=== PATIENT | female | born 1955 | race Caucasian/White ===

== ENCOUNTER 2020-02-02 03:14 | Inpatient (IN) | payer MEDICARE, OTHER ==
[~2020-02-02] VITALS: Ht 165.1 cm; Wt 108.6 kg
[2020-02-02] MEDS ORDERED: ONDANSETRON HCL 4 MG/2 ML VIAL IV ONE (03:45)
[2020-02-02] MEDS ORDERED: ASPirin 81 mg TAB PO ONE (03:45)
[2020-02-02] MEDS ORDERED: MORPHINE SULFATE 4 MG/ML SYR/VIAL IV ONE (03:45)
[2020-02-02] MEDS ORDERED: ASPirin 81 mg TAB ONE (05:00)
[2020-02-02 05:52] LABS: INR 0.94 (0.9-1.15); Partial Thromboplastin Time 25.2 sec (23.64-32.05)
[2020-02-02 05:53] LABS: Basophils # (auto) 0 10 ^3/uL (0-0.2); Basophils % (auto) 0.3 % (0.0-2.0); Eosinophils # (auto) 0 10 ^3/uL (0-0.8); Eosinophils % (auto) 0.7 % (0.0-7.0); Hemoglobin 13.8 g/dL (12.2-16.2); Lymphocytes # (auto) 0.8 10 ^3/uL (0.4-5.4); Lymphocytes % (auto) 13.1 % (10.0-50.0); Mean Corpuscular Hemoglobin 28.2 pg (28.0-32.0); Mean Corpuscular Hgb Conc. 32.9 g/dL (32.0-36.0); Mean Corpuscular Volume 85.6 fL (80.0-100.0); Monocytes # (auto) 0.4 10 ^3/uL (0-1.3); Neutrophils % (auto) 78.9 % (37.0-80.0); Platelet Count (auto) 209 10^3/uL (140-450); Red Blood Cells 4.91 10^6/uL (4.0-5.20); Red Cell Distribution Width 15.4 % (11.8-14.3); White Blood Cell 6.4 10^3/uL (4.4-10.8)
[2020-02-02 06:03] LABS: Albumin 3.3 g/dL (3.4-5.0); Calcium 8.6 mg/dL (8.5-10.1); Magnesium 2.3 mg/dL (1.6-2.6); Potassium 3.6 mmol/L (3.5-5.1)
[2020-02-02 06:09] LABS: BUN/Creatinine Ratio 13.6; Bilirubin, Total 0.2 mg/dL (0.2-1.0); Total Protein 7.2 g/dL (6.4-8.2)
[2020-02-02] MEDS ORDERED: ACETAMINOPHEN 325 MG TAB PO PRN (07:00)
[2020-02-02] MEDS ORDERED: MORPHINE SULF INJ 2 MG/ML SYRINGE 1ML IV PRN ×2 (07:00→18:15)
[2020-02-02] MEDS ORDERED: ONDANSETRON HCL 4 MG/2 ML VIAL IV PRN (07:00)
[2020-02-02] MEDS ORDERED: ZOLPIDEM TARTRATE 5 MG TAB PO PRN (07:00)
[2020-02-02] MEDS ORDERED: DEXTROSE (50%) 50ML SYRG IV PRN (07:00)
[2020-02-02] MEDS ORDERED: NITROGLYCERIN 0.4 MG SL TAB SL PRN ×2 (07:00)
[2020-02-02] MEDS ORDERED: MORPHINE SULFATE 4 MG/ML SYR/VIAL IV PRN (07:00)
[2020-02-02] MEDS ORDERED: LISINOPRIL 10 MG TAB PO SCH (10:00)
[2020-02-02] MEDS ORDERED: NITROGLYCERIN 0.4 MG SL TAB SL ONE (10:00)
[2020-02-02] MEDS ORDERED: ASPirin 81 mg TAB PO SCH (10:00)
[2020-02-02] MEDS ORDERED: CARVEDILOL 3.125 MG TAB PO SCH (10:00)
[2020-02-02] MEDS ORDERED: CLOPIDOGREL BISULFATE 75 MG TAB PO SCH (10:00)
[2020-02-02] MEDS: DOCUSATE SOD 100 MG CAP PO SCH (10:00)
[2020-02-02] MEDS ORDERED: ENOXAPARIN SOD 100 MG/1 ML SYRINGE SC SCH (10:00)
[2020-02-02] MEDS ORDERED: LISI-706 PO (10:21)
[2020-02-02] MEDS ORDERED: AMLO5TAB15 PO (10:23)
[2020-02-02] MEDS ORDERED: ATOR10TA PO (10:23)
[2020-02-02] MEDS ORDERED: NTG 0.1MG/HR TOPICAL PATCH TD ONE (10:45)
[2020-02-02] MEDS: InsuLIN REG 1unit/0.01ml Soln (100units/ml) SC SCH ×3 (12:00→23:49)
[2020-02-02] MEDS: ACCU-CHEK COMFORT CURVE STRIP VI SCH ×3 (12:11→23:48)
[2020-02-02] MEDS ORDERED: VERAPAMIL 2.5MG/ML INJ 2ML VIAL IV ONE (13:11)
[2020-02-02] MEDS ORDERED: ANGIOMAX 250 MG VIAL IV ONE (13:11)
[2020-02-02] MEDS ORDERED: fentaNYL CITRATE 100 MCG/2 ML VL ONE (13:11)
[2020-02-02] MEDS ORDERED: HEPARIN SODIUM (PORCINE) 5000 UNITS/ML 1ML VIAL ONE (13:11)
[2020-02-02] MEDS ORDERED: HEPARIN IN NS 1000Units/500mL 1,500 ML ONE (13:12)
[2020-02-02] MEDS ORDERED: NITROGLYCERIN 50MG/250ML 250 ML IV ONE (13:12)
[2020-02-02] MEDS ORDERED: SODIUM CHL 0.9% 50 ML ONE (13:12)
[2020-02-02] MEDS ORDERED: MIDAZOLAM HCL 1MG/1ML-2 ML VIAL ONE (13:12)
[2020-02-02] MEDS ORDERED: IODIXANOL 320MG/ML 100ML BTL IV ONE (13:12)
[2020-02-02] MEDS ORDERED: LIDOCAINE 2%HCL (LOCAL ANESTH.) INJ 20ML MDV ONE (13:12)
[2020-02-02] MEDS ORDERED: TICAGRELOR 90 MG TAB ONE (15:21)
--- NOTE | 2020-02-02 16:17 | NUR ---
Media Reporter; Patient taken to [facility] bed 263 on museum specialist, patient denies any chest pain at this time, Vital signs WNL. Vascband to right wrist in place and intact, no bleeding, no hematoma noted, care endorsed to Clint FLORES RN.
--- NOTE | 2020-02-02 17:19 | NUR ---
PT IN [facility] NO DISTRESS NOTED. COMPLETE PHYSICAL ASSESSMENT UNDER INTERVENTIONS. WILL CONTINUE TO MONITOR. CALL LIGHT WITHIN REACH AND BED LOCKED FOR SAFETY.
[2020-02-02 18:05] VITALS: BP 118/51
[2020-02-02 20:00] VITALS: BP 113/57
--- NOTE | 2020-02-02 20:00 | NUR ---
SHIFT OPENING NOTE RECEIVED PATIENT AWAKE, ALERT AND ORIENTED X4. NO SOB, DISTRESS OR PAIN NOTED. STATUS POST LHC. INSERTION SITE TO RIGHT WRIST IS OPEN TO AIR. NO SIGNS OF BLEEDING, BRUISING OR HEMATOMA. NORMAL PULSES TO RIGHT WRIST. PHYSICAL ASSESSMENT COMPLETED, SEE INTERVENTIONS. INSTRUCTED ON POC AND TO CALL FOR ASSIST NEEDED. BED IS IN THE LOWEST POSITION WITH SIDE RAILS UP X2, CALL LIGHT IS WITHIN REACH.
[2020-02-02] MEDS: CARVEDILOL 3.125 MG TAB PO SCH (21:14)
[2020-02-02] MEDS ORDERED: FEXOFENADINE HCL 60 MG TAB PO ONE (21:15)
[2020-02-02] MEDS ORDERED: ATORVASTATIN 20 MG TAB PO SCH ×2 (22:00)
[2020-02-03] VITALS: BP 98/51
--- NOTE | 2020-02-03 00:45 | NUR ---
ROUNDS PATIENT IS LAYING IN BED SLEEPING. NO SOB, DISTRESS OR PAIN NOTED. WILL CONTINUE TO CLOSELY MONITOR.
[2020-02-03 04:00] VITALS: BP 94/43
[2020-02-03 04:34] LABS: Basophils # (auto) 0 10 ^3/uL (0-0.2); Basophils % (auto) 0.4 % (0.0-2.0); Eosinophils # (auto) 0.1 10 ^3/uL (0-0.8); Eosinophils % (auto) 2.2 % (0.0-7.0); Hematocrit 41.1 % (36.0-46.0); Hemoglobin 13.5 g/dL (12.2-16.2); Lymphocytes # (auto) 1.5 10 ^3/uL (0.4-5.4); Lymphocytes % (auto) 24.5 % (10.0-50.0); Mean Corpuscular Hgb Conc. 32.7 g/dL (32.0-36.0); Mean Corpuscular Volume 85.5 fL (80.0-100.0); Monocytes # (auto) 0.6 10 ^3/uL (0-1.3); Monocytes % (auto) 9.6 % (0.0-12.0); Neutrophils # (auto) 3.9 10 ^3/uL (1.6-8.6); Neutrophils % (auto) 63.3 % (37.0-80.0); Nucleated Red Blood Cells % 0.1 %; Platelet Count (auto) 205 10^3/uL (140-450); Red Blood Cells 4.81 10^6/uL (4.0-5.20); Red Cell Distribution Width 15.1 % (11.8-14.3); White Blood Cell 6.1 10^3/uL (4.4-10.8)
[2020-02-03 04:57] LABS: Potassium 3.6 mmol/L (3.5-5.1)
[2020-02-03] MEDS ORDERED: TICAGRELOR 90 MG TAB PO SCH (05:00)
[2020-02-03 05:07] LABS: Calcium 8.4 mg/dL (8.5-10.1)
--- NOTE | 2020-02-03 05:35 | NUR ---
ASSISTED UP TO BSC URINE OUTPUT 450 ML OF CLEAR YELLOW. SAFELY BACK TO BED. TOLERATED IT WELL.
[2020-02-03] MEDS: InsuLIN REG 1unit/0.01ml Soln (100units/ml) SC SCH ×2 (05:36→12:45)
[2020-02-03] MEDS: ACCU-CHEK COMFORT CURVE STRIP VI SCH ×2 (05:36→13:08)
--- NOTE | 2020-02-03 07:00 | NUR ---
DR. PINO AT BEDSIDE
--- NOTE | 2020-02-03 07:10 | NUR ---
PER DR. PINO PATIENT CAN GO HOME TODAY
--- NOTE | 2020-02-03 07:12 | NUR ---
END OF SHIFT REPORT GIVEN AND CARE ENDORSED TO EFREN RN'S.
--- NOTE | 2020-02-03 07:24 | NUR ---
Opening Shift Note Assumed care of patient, awake and alert x 4. No S/S of distress/SOB or pain. Patient is on continuous EKG and pulse oximetry monitoring. Bed is in lowest position and locked. Call light within reach. Board updated. Instructed on POC and to call for assist PRN, will continue to monitor for changes Q1hr and PRN.
[2020-02-03 08:00] VITALS: BP 112/63
--- NOTE | 2020-02-03 09:35 | NUR ---
Held Colace per patient request. She is moving bowels regularly and is having no motility issues.
[2020-02-03] MEDS ORDERED: NTG 0.1MG/HR TOPICAL PATCH TD SCH (10:00)
[2020-02-03] MEDS ORDERED: ASPirin 81 mg TAB PO SCH (10:00)
[2020-02-03] MEDS: DOCUSATE SOD 100 MG CAP PO SCH (10:00)
[2020-02-03] MEDS: CARVEDILOL 3.125 MG TAB PO SCH (10:24)
[2020-02-03] MEDS ORDERED: FEXOFENADINE HCL 60 MG TAB PO ONE (11:30)
[2020-02-03] MEDS ORDERED: ASPI81CH43 PO (11:31)
[2020-02-03] MEDS ORDERED: TICA90TA PO (11:31)
[2020-02-03] MEDS ORDERED: ATOR40TA52 PO (11:31)
[2020-02-03] MEDS ORDERED: CAR3125T PO (11:34)
[2020-02-03 12:00] VITALS: BP 101/62
--- NOTE | 2020-02-03 12:35 | NUR ---
Partida in to see patient. agreed to discharge and will write order.
[2020-02-03 12:41] VITALS: BP 101/62
--- NOTE | 2020-02-03 14:01 | NUR ---
Patient taken down via wheelchair with GRADY Taylor to get prescription from [facility] and go home. Discharge instructions given as ordered. Encourage to follow up with PMD as instructed. All questions and concerns addressed. Patient verbalized understanding. IV removed with catheter intact, pressure dressing applied. Patient taken to vehicle via wheelchair with all personal belongings, accompanied by staff No distress noted at time of departure.
== END 2020-02-03 14:05 | disposition home or self-care (01) | DRG 246 ==
LOC: ER 03:14 → TELE 03:15 → DOU IN ICU 17:58
PROVIDERS: ADMIT Hospitalist; ATTEND Hospitalist
PROC: 027034Z Dilation of Coronary Artery, One Artery with Drug-eluting Intraluminal Device, Percutaneous Approach (ICD-10-PCS; principal; 2020-02-02)
PROC: 4A023N7 Measurement of Cardiac Sampling and Pressure, Left Heart, Percutaneous Approach (ICD-10-PCS; 2020-02-02)
PROC: B211YZZ Fluoroscopy of Multiple Coronary Arteries using Other Contrast (ICD-10-PCS; 2020-02-02)
DX: I21.4 Non-ST elevation (NSTEMI) myocardial infarction (principal); I50.43 Acute on chronic combined systolic (congestive) and diastolic (congestive) heart failure; E44.1 Mild protein-calorie malnutrition; I25.10 Atherosclerotic heart disease of native coronary artery without angina pectoris; E66.01 Morbid (severe) obesity due to excess calories; E78.5 Hyperlipidemia, unspecified; L50.9 Urticaria, unspecified; E11.65 Type 2 diabetes mellitus with hyperglycemia; Z68.39 Body mass index [BMI] 39.0-39.9, adult; Z79.899 Other long term (current) drug therapy; I11.0 Hypertensive heart disease with heart failure
CPT/HCPCS: 36415; 71045; 80048; 80053; 80061; 82962; 83036; 83735; 83880; 84484; 85025; 85610; 85730; 92928; 93005; 93306; 93458; 96372; 96374; 96375; 99152; 99153; C1874; C1887; G0378; J2250; J2405; Q9967

== ENCOUNTER 2025-02-05 00:39 | Inpatient (IN) | payer MEDICARE, OTHER ==
[2025-02-05] VITALS (11 sets, daily range): BP systolic 120–159; BP diastolic 61–75; PULSE 69–92; RESP 16–20; TEMP 98.1–99.2; O2SAT 93–98
[~2025-02-05] VITALS: Ht 167.6 cm; Wt 105.2 kg
[~2025-02-05 00:39] MED LIST: ASPI81CH43 PO; ATOR10TA PO; ATOR40TA52 PO; CARV-214 PO; LISI-706 PO; TICA90TA PO
--- NOTE | 2025-02-05 01:09 | ECG ---
[facility] Test Date: 2025-02-05 Test Time: 00:46:43 Pat Name: NINI LOPEZ Department: C Room: 0281T Gender: F Alignment Mechanic: BEATRIZ : 1955 Requested By: LAURA MCARTHUR Order Number: [id number] Reading MD: Gasper Pedersen Measurements Intervals [place] Rate: 75 P: 79 HI: 181 QRS: 54 QRSD: 107 T: 45 QT: 428 QTc: 479 Interpretive Statements Sinus rhythm Abnormal R-wave progression, early transition Electronically Signed On 02-06-2025 19:04:30 PDT by Gasper Pedersen Please click the below link to view image of tracing.
[2025-02-05] MEDS: MAALOX PLUS or MAALOX 30 ML PO ONE (01:15)
[2025-02-05 01:16] LABS: Hematocrit 42.8 % (36.0-46.0); Hemoglobin 14.4 g/dL (12.2-16.2); Mean Corpuscular Hemoglobin 28.3 pg (28.0-32.0); Mean Corpuscular Volume 84.1 fL (80.0-100.0); Nucleated Red Blood Cells % 0.0 %
--- NOTE | 2025-02-05 01:16 | ED.PDOC ---
History of Present Illness HPI Comments 69 y/o F presents with c/c of mid-abdominal pain, that radiates to her chest and back, with associated nausea, vomiting, fatigue, and dry mouth. Patient reports on sudden and unprovoked onset of symptoms 3x hours prior to arrival. No prior history of symptoms in the past. Pain is burning in quality and an 8/10 in severity. No relief with Gas-X, Terrie Ellsworth, or Pepcid medication use. She also reports 1x isolated episode of diarrhea in addition to eating urdu food and tacos and drinking 3x glasses of wine, yesterday. Denies any shortness of breath, lightheadedness, dizziness, leg swelling, or further associated symptoms. Significant history of three-vessel disease - CAD s/p PCI at [facility], chronic urticaria, DM, HLD, HTN, NSTEMI x3 years ago, and obesity. Chief Complaint: Chest Pain Time Seen by MD: 00:45 Reviewed Notes: Nurses Notes, Medications, Allergies Allergies: Coded Allergies: No Known Drug Allergy (Verified Allergy, Unknown, 02/02/20) Home Meds Active Scripts Aspirin (Aspirin Ec) 81 Mg Tab, 81 MG PO DAILY, #120 TAB Prov:CIRO ABARCA MD 02/05/25 Carvedilol (COREG) 3.125 Mg Tab, 3.125 MG PO BID for 30 Days, #60 TAB Prov:CIRO ABARCA MD 02/05/25 Atorvastatin Calcium (ATORVASTATIN CALCIUM) 40 Mg Tab, 1 TAB PO DAILY, #30 TAB 1 Refill Prov:CIRO ABARCA MD 02/05/25 Ticagrelor Base (BRILINTA) 90 Mg Tab, 90 MG PO BID for 30 Days, #60 TAB 1 Refill Prov:CIRO ABARCA MD 02/05/25 Aspirin (Asa) 81 Mg Ch, 81 MG PO DAILY for 100 Days, #100 TAB Prov:COREEN VALENZUELA MD 02/03/20 Reported Medications Atorvastatin Calcium (Lipitor) 10 Mg Tab, 1 TAB PO QPM, #90 TAB 3 Refills 02/02/20 Lisinopril & Hydrochlorothiazi (Zestoretic 20-12.5 mg) 1 Tab Tab, 2 TAB PO DAILY, TAB 02/02/20 Information Source: Patient Mode of Arrival: Wheelchair Severity: Moderate Timing: Hours Duration: Since onset Prehospital treatment: None Review of Systems: REVIEW OF SYSTEMS: Fatigue, no fever, no chills. HEENT: Dry mouth, no sore throat, no earache, no congestion, no neck pain. Cardiac: No chest pain. No palpitations. Lungs: No shortness of breath, no cough. GI: Abdominal pain, nausea, vomiting, no diarrhea : No dysuria, frequency, or urgency. No hematuria. Musculoskeletal: No joint pain , no joint swelling, no extremity edema. Skin: No rash, no itching. Neuro: No headache, no dizziness, no weakness Vital Signs Vital Signs Date Time Temp Pulse Resp B/P (MAP) Pulse Ox O2 Delivery O2 Flow Rate FiO2 02/05/25 03:50 67 16 158/83 (108) 94 02/05/25 02:36 98.7 98.7 02/05/25 02:36 Room Air Physical Exam General: Awake, alert and oriented. No acute distress. Skin: Skin in warm, dry and intact. Appropriate color for ethnicity. HEENT: The head is normocephalic and atraumatic. Conjunctivae are clear without exudates or hemorrhage. Sclera is non-icteric. EOM are intact. No signs of nystagmus. Eyelids are normal in appearance without swelling or lesions. Oral mucosa is pink and moist Neck: The neck is supple with normal range of motion. No JVD. Cardiac: Heart rate and rhythm are normal. No murmurs, gallops, or rubs are auscultated. Respiratory: No signs of respiratory distress. Lung sounds are clear in all lobes bilaterally without rales, rhonchi, or wheezes. Abdominal: Epigastric and RUQ abdominal tenderness. Remaining abdomen is soft, non-tender without distention, guarding or rigidity. Bowel sounds are present and normoactive in all four quadrants. Extremities: Upper and lower extremities are atraumatic in appearance without deformity or edema. Neurological: The patient is awake, alert and oriented to person, place, and time with normal speech. Speech is clear. There is no facial asymmetry. Psychiatric: Appropriate mood and affect. Good judgement and insight. Past Medical History PAST MEDICAL HISTORY: CAD (Three-vessel disease), DM, High Lipids, HTN, [place] (NSTEMI 3 years ago) Past Medical History (Other): Obesity Chronic Uticaria Surgical History (Other): S/p PCI at [facility] PLACEMENT MANAGER History: No Pertinent PLACEMENT MANAGER History Family History Family History: Reviewed,noncontributory to illness, No family hx of Cancer Social History Smoker: Non-Smoker Alcohol: Occasionally Drugs: Denies Drug Use Lives In: Home Was a procedure done? Was a procedure done?: No EKG EKG : Pulse Rate (adult): 75 [place]: Normal Cardiac Rhythm: NSR Block: None Hypertrophy: None ST: Normal Comments No STEMI Differential Dx Considerations may include: Differential diagnoses considered include acute ischemic coronary syndrome, aortic dissection, cardiac tamponade, mediastinitis, pulmonary embolus, pneumothorax, tension pneumothorax, esophageal rupture, coronary artery vasospasm, myocarditis, pericarditis, pneumonia, pulmonary edema, esophageal tear, pancreatitis, aortic stenosis, dilated cardiomyopathy, hypertrophic cardiomyopathy, mitral valve prolapse, malignancy, pleuritis, pneumomediastinum, primary pulmonary hypertension, cholecystitis, esophageal spasm, esophagus, gastritis, GERD, peptic ulcer disease, costochondritis, fibromyalgia, rib fracture, herpes zoster, radicular syndromes, thoracic outlet syndrome, somati zation. X-Ray, Labs, Meds, VS Vital Signs Date Time Temp Pulse Resp B/P (MAP) Pulse Ox O2 Delivery O2 Flow Rate FiO2 02/05/25 03:50 67 16 158/83 (108) 94 02/05/25 03:47 67 16 158/83 02/05/25 03:42 65 02/05/25 02:36 98.7 75 16 163/66 (98) 95 98.7 02/05/25 02:36 75 16 163/66 02/05/25 02:36 75 16 95 Room Air 02/05/25 01:45 69 02/05/25 01:16 75 02/05/25 00:47 97.7 88 18 179/86 (117) 97 97.7 02/05/25 00:46 75 Lab Test 02/05/25 05:33 02/05/25 04:06 02/05/25 02:02 02/05/25 01:03 Range/Units Prothrombin Time 10.3 9.3-11.8 sec Prothrombin Time INR 0.97 0.9-1.15 Troponin I High Sensitivity 60 *H 36 *H 26 </=34 ng/L White Blood Count 8.0 4.4-10.8 10^3/uL Red Blood Count 5.09 4.0-5.20 10^6/uL Hemoglobin 14.4 12.2-16.2 g/dL Hematocrit 42.8 36.0-46.0 % Mean Corpuscular Volume 84.1 80.0-100.0 fL Mean Corpuscular Hemoglobin 28.3 28.0-32.0 pg Mean Corpuscular Hemoglobin Concent 33.7 32.0-36.0 g/dL Red Cell Distribution Width 14.6 H 11.8-14.3 % Platelet Count 205 140-450 10^3/uL Mean Platelet Volume 8.4 6.9-10.8 fL Neutrophils (%) (Auto) 78.2 37.0-80.0 % Lymphocytes (%) (Auto) 13.8 10.0-50.0 % Monocytes (%) (Auto) 6.6 0.0-12.0 % Eosinophils (%) (Auto) 1.1 0.0-7.0 % Basophils (%) (Auto) 0.3 0.0-2.0 % Neutrophils # (Auto) 6.3 1.6-8.6 10 ^3/uL Lymphocytes # (Auto) 1.1 0.4-5.4 10 ^3/uL Monocytes # (Auto) 0.5 0-1.3 10 ^3/uL Eosinophils # (Auto) 0.1 0-0.8 10 ^3/uL Basophils # (Auto) 0 0-0.2 10 ^3/uL Nucleated Red Blood Cells 0.0 % Sodium Level 141 136-145 mmol/L Potassium Level 3.5 3.5-5.1 mmol/L Chloride Level 102 98-107 mmol/L Carbon Dioxide Level 30 20-31 mmol/L Anion Gap 9 5-15 Blood Urea Nitrogen 17 9-23 mg/dL Creatinine 1.03 H 0.550-1.02 mg/dL Glomerular Filtration Rate Calc 58 >90 mL/min BUN/Creatinine Ratio 16.5 10.0-20.0 Serum Glucose 132 H 74-106 mg/dL Calcium Level 9.0 8.7-10.4 mg/dL B-Type Natriuretic Peptide 29.68 0-100 pg/mL Current Medications Medications (Trade) Dose Ordered Sig/Ann Marie Route Start Time Stop Time Status Last Admin Al Hydrox/Mg Hydrox/Simethicone (Maalox Plus) 30 ml ONCE ONCE PO 02/05/25 01:15 02/05/25 01:16 DC 02/05/25 01:15 Lidocaine HCl (Xylocaine 2% Viscous) 10 ml ONCE ONCE PO 02/05/25 01:15 02/05/25 01:16 DC 02/05/25 02:59 Morphine Sulfate 2 mg ONCE ONCE IV 02/05/25 01:15 02/05/25 01:16 DC 02/05/25 02:36 Ondansetron HCl (Zofran) 4 mg ONCE ONCE IV 02/05/25 01:15 02/05/25 01:16 DC 02/05/25 02:36 [place] [id number] Ph: [phone] DIAGNOSTIC IMAGING Diagnostic Imaging Report : [id number] Signed PATIENT: NINI LOPEZ ACCT: [id number] UNIT: [id number] : 1955 LOC: ER ROOM / BED: / AGE / SEX: 69 / F ADM STATUS: REG ER SERVICE 0 ORDERING PHYSICIAN: LAURA MCARTHUR MD PROCEDURE(s): CXR1 - CHEST XRAY 1 VIEW REASON: cp ORDER NUMBER(s): [id number], ACCESSION NUMBER(s): [id number] CHEST RADIOGRAPH Indication: cp Technique: Single frontal view of the chest was obtained COMPARISON: None FINDINGS: Lines and Tubes: None Lungs: Clear Pleura: No effusion. No pneumothorax. Cardiomediastinal contours: Unremarkable Bones: Unremarkable IMPRESSION: 1. No acute disease. ATED BY: DIAZ HOLLIDAY MD DICTATED DATE/TIME: 02/05/25123 SIGNED BY: DIAZ HOLLIDAY MD SIGNED DATE/TIME: 02/05/25123 CC: Time of 1ST Reevaluation: 01:15 Reevaluation 1ST: Unchanged Patient Education/Counseling: Treatment, Other (Need for admission) Family Education/Counseling: No Family Present SEPSIS Sepsis Screen Date sepsis recognized/suspect: Feb 05, 2025 Time Sepsis recognized/suspect: 0040 Recent Procedure: No On Antibiotic Therapy: No Respiratory Rate >20: No Heart Rate >90: No Temp<36 C (96.8 F) or >38.3 C: No SBP <90 or MAP <65 mmHG: No New Acute Mental Status Change: No Is the patient on CPAP, BIPAP,: No Physician Orders Chest Xray 1 View (02/05/25 01:01) Vital Signs Q1HR (02/05/25 01:01) Vital Signs Date Time Temp Pulse Resp B/P (MAP) Pulse Ox O2 Delivery O2 Flow Rate FiO2 02/05/25 03:50 67 16 158/83 (108) 94 02/05/25 03:47 67 16 158/83 02/05/25 03:42 65 02/05/25 02:36 98.7 75 16 163/66 (98) 95 98.7 02/05/25 02:36 75 16 163/66 02/05/25 02:36 75 16 95 Room Air 02/05/25 01:45 69 02/05/25 01:16 75 02/05/25 00:47 97.7 88 18 179/86 (117) 97 97.7 02/05/25 00:46 75 Laboratory Tests Test 02/05/25 01:03 White Blood Count 8.0 10^3/uL (4.4-10.8) Departure 1 Departure Time of Disposition: 04:31 Impression: Primary Impression: Chest pain Additional Impression: Elevated troponin Disposition: ADMITTED INPATIENT Condition: Stable e-Prescriptions Aspirin (Aspirin Ec) 81 Mg Tab 81 MG PO DAILY, #120 TAB Prov: CIRO ABARCA MD 02/05/25 Carvedilol (COREG) 3.125 Mg Tab 3.125 MG PO BID for 30 Days, #60 TAB Prov: CIRO ABARCA MD 02/05/25 Atorvastatin Calcium (ATORVASTATIN CALCIUM) 40 Mg Tab 1 TAB PO DAILY, #30 TAB 1 Refill Prov: CIRO ABARCA MD 02/05/25 Ticagrelor Base (BRILINTA) 90 Mg Tab 90 MG PO BID for 30 Days, #60 TAB 1 Refill Prov: CIRO ABARCA MD 02/05/25 Comments 72-year-old female presents with epigastric abdominal burning sensation Concern for chest pain syndrome Troponin increasing during the ED observation EKG shows no ischemic changes Patient admitted to hospitalist service for further treatment, evaluation and monitoring. Extensive evaluation was performed in attempt to identify or rule out: (See differential diagnosis section) The following tests were ordered, and results were reviewed by me and discussed with patient: (See diagnostic results section) The following test were independently interpreted by me: EKG I reviewed and agreed with the following test results read by other providers: Chest x-ray I reviewed the following notes from the pt's past medical encounters: February 02, 2020 encounter for NSTEMI Decision regarding hospitalization or escalation of hospital level of care: Risk and benefits of admission for further treatment of patient's condition was considered. Due to patient's current clinical condition, high risk of decline and poor outcome if discharged and need for further inpatient management and monitoring, patient will be admitted to the hospital. Critical Care Note Critical Care Time?: No Stability Stability form required: No Heart Score Heart Score: Heart Score Response (Comments) Value History Moderate Suspicious 1 EKG Normal 0 Age >65 2 Risk Factors >3 or Hx ASHD 2 Troponin 1-2 x's Normal limit 1 Total 6 I personally scribed for LAURA MCARTHUR MD [email or web address]) on 02/05/25 at 01:16. Electronically submitted by Gideon Hahn [email or web address]). I personally scribed for LAURA MCARTHUR MD ([email or web address]) on 02/05/25 at 03:06. Electronically submitted by Gideon Hahn [email or web address]). LAURA MCARTHUR MD Feb 05, 2025 01:16
[2025-02-05 01:24] LABS: Chloride 102 mmol/L (98-107); Sodium 141 mmol/L (136-145)
[2025-02-05 01:25] LABS: Anion Gap 9 (5-15); Carbon Dioxide 30 mmol/L (20-31)
[2025-02-05 01:26] LABS: Calcium 9.0 mg/dL (8.7-10.4)
--- NOTE | 2025-02-05 01:27 | DVH ---
CHEST RADIOGRAPH Indication: cp Technique: Single frontal view of the chest was obtained COMPARISON: None FINDINGS: Lines and Tubes: None Lungs: Clear Pleura: No effusion. No pneumothorax. Cardiomediastinal contours: Unremarkable Bones: Unremarkable IMPRESSION: 1. No acute disease.
[2025-02-05 01:30] LABS: BUN/Creatinine Ratio 16.5 (10.0-20.0); Blood Urea Nitrogen 17 mg/dL (9-23)
[2025-02-05 01:31] LABS: Glucose 132 mg/dL (74-106); Potassium 3.5 mmol/L (3.5-5.1)
[2025-02-05] MEDS: MORPHINE SULFATE INJ 2 MG/ml SYRG IV ONE (02:36)
[2025-02-05] MEDS: ONDANSETRON HCL 4 MG/2 ML VIAL IV ONE (02:36)
[2025-02-05] MEDS: LIDOCAINE VISCOUS 2% 15ML UD PO ONE (02:59)
[2025-02-05] MEDS ORDERED: MORPHINE SULFATE INJ 2 MG/ml SYRG IV PRN (05:45)
[2025-02-05] MEDS ORDERED: NITROGLYCERIN 0.4 MG SL TAB SL PRN (05:45)
[2025-02-05] MEDS ORDERED: HYDROcodone-ACET 5/325MG TAB PO PRN ×2 (05:45→06:00)
--- NOTE | 2025-02-05 05:48 | ECG ---
[facility] Test Date: 2025-02-05 Test Time: 01:45:20 Pat Name: NINI LOPEZ Department: ED Room: 0281T Gender: F Lithographic Plate Maker: YULIA : 1955 Requested By: LAURA MCARTHUR Order Number: [id number] Reading MD: Gasper Pedersen Measurements Intervals [place] Rate: 69 P: 53 VT: 157 QRS: 19 QRSD: 113 T: 28 QT: 425 QTc: 456 Interpretive Statements Sinus rhythm Anteroseptal infarct, age indeterminate Electronically Signed On 02-06-2025 19:04:35 PDT by Gasper Pedersen Please click the below link to view image of tracing.
--- NOTE | 2025-02-05 05:49 | ECG ---
[facility] Test Date: 2025-02-05 Test Time: 03:42:12 Pat Name: NINI LOPEZ Department: ED Room: [facility] Gender: F Armed Security Guard: YULIA : 1955 Requested By: LAURA MCARTHUR Order Number: [id number] Reading MD: Gasper Pedersen Measurements Intervals [place] Rate: 65 P: 54 NE: 170 QRS: 15 QRSD: 107 T: 27 QT: 441 QTc: 459 Interpretive Statements Sinus rhythm Electronically Signed On 02-06-2025 19:04:46 PDT by Gasper Pedersen Please click the below link to view image of tracing.
--- NOTE | 2025-02-05 06:03 | DVHHP2 ---
Admitting Diagnosis: Chest pain r/o ACS, Elevated Troponin level History of Present Illness History Source: Patient Exam Limitations: No limitations HPI Mrs. Carmina Temple is a 69 yo female with known history of CAD, NSTEMI, stent placement x1 by Dr. Andrea cerrato 3 years ago, HTN, HLD, DM, Obesity who presents with a chief complaint of mid abdominal pain burning sensation radiating to mid epigastric, chest and back onset last night which prompted her to come to the hospital. Patient reports associated nausea , vomiting. Denies dyspnea, heada ches, blurry vision, fevers , chills, diarrhea, vomiting, melena, hematochezia, hematemesis. Patient with troponin levels of 26, 36 , 60. Patient admitted for further evaluation and treatment. Home Meds Active Scripts Carvedilol (COREG) 3.125 Mg Tab, 3.125 MG PO Q12HR for 30 Days, #60 TAB Prov:COREEN VALENZUELA MD 02/03/20 Atorvastatin Calcium (ATORVASTATIN CALCIUM) 40 Mg Tab, 1 TAB PO DAILY, #30 TAB 0 Refills Prov:COREEN VALENZUELA MD 02/03/20 Ticagrelor Base (BRILINTA) 90 Mg Tab, 90 MG PO BID for 30 Days, #60 TAB Prov:COREEN VALENZUELA MD 02/03/20 Aspirin (Asa) 81 Mg Ch, 81 MG PO DAILY for 100 Days, #100 TAB Prov:COREEN VALENZUELA MD 02/03/20 Reported Medications Atorvastatin Calcium (Lipitor) 10 Mg Tab, 1 TAB PO QPM, #90 TAB 3 Refills 02/02/20 Lisinopril & Hydrochlorothiazi (Zestoretic 20-12.5 mg) 1 Tab Tab, 2 TAB PO DAILY, TAB 02/02/20 Past Medical History Cardiac: CAD, HTN, CO (stent placement), Hyperlipidemia Pulmonary: No pertinent Hx Central Nervous System: No pertinent Hx GI: No pertinent Hx Hemotology/Oncology: No pertinent Hx Hepatobiliary: No pertinent Hx Psychiatric: No pertinent Hx Musculoskeletal: No pertinent Hx Rheumotologic: No pertinent Hx Infectious Disease: No peritnent Hx ENT: No pertinent Hx Renal/: No pertinent Hx Endocrine: NIDDM Dermatology: No pertinent Hx Patient Family History: FH: cancer Hypertension G8 MOTHER Smoker: No Hx (Negative) Alocohol: None Drugs: None Domestic Violence: Neg Review of Systems Constitutional: No symptom reported Ears, Nose, & Throat: No symptom reported Eyes: No symptom reported Pulmonary/Respiratory: No symptom reported Cardiovascular: Chest Pain Gastrointestinal: Nausea, Vomiting, Abdominal Pain Genitourinary: No symptom reported Musculoskeletal: Back pain Skin: No symptom reported Psychiatric: No symptom reported Endocrine: No symptom reported Hemotologic/Lymphatic: No symptom reported H&P Exam Vital Signs Vital Signs Date Time Temp Pulse Resp B/P (MAP) Pulse Ox O2 Delivery O2 Flow Rate FiO2 02/05/25 03:50 67 16 158/83 (108) 94 02/05/25 02:36 98.7 98.7 02/05/25 02:36 Room Air General Appeara: Well developed, Well nourished, Normal Appearance Head Exam: Normal inspection Neck Exam: Normal inspection, Non-tender, Normal alignment Eye Exam: bilateral eye Normal inspection, bilateral eye PERRL, bilateral eye EOMI Ear Exam: bilateral ear Auricle normal Nasal Exam: Normal inspection Mouth: Normal Inspection Pulmonary/Respiratory: Normal inspection, Normal breath sounds, Chest non- tender, Lungs clear Cardiovascular/Chest: Normal inspection, Regular rate, Normal Rhythm Peripheral Pulses: 2+ dorsalis pedis (R), 2+ dorsalis pedis (L), 2+ Radial (R), 2+ Radial (L) Abdominal Exam: Normal bowel sounds, Soft, No tenderness Abdominal Pain Onset Location: Epigastric Back Exam: Normal inspection RHEUMATOLOGIST Exam: Normal hearing, Normal speech, PERRL Motor/Sensory: Normal sensory function, Normal motor function Neuro/Mental St: Alert, Oriented Eye contact/ Speech: Cooperative, Good eye contact, Normal speech Thoughts/Psych: Normal thought pattern Skin Exam: Normal inspection, Normal color, Warm/dry Labs/Xrays Labs Test 02/05/25 04:06 02/05/25 01:03 Range/Units Troponin I High Sensitivity 60 *H </=34 ng/L White Blood Count 8.0 4.4-10.8 10^3/uL Red Blood Count 5.09 4.0-5.20 10^6/uL Hemoglobin 14.4 12.2-16.2 g/dL Hematocrit 42.8 36.0-46.0 % Mean Corpuscular Volume 84.1 80.0-100.0 fL Mean Corpuscular Hemoglobin 28.3 28.0-32.0 pg Mean Corpuscular Hemoglobin Concent 33.7 32.0-36.0 g/dL Red Cell Distribution Width 14.6 H 11.8-14.3 % Platelet Count 205 140-450 10^3/uL Mean Platelet Volume 8.4 6.9-10.8 fL Neutrophils (%) (Auto) 78.2 37.0-80.0 % Lymphocytes (%) (Auto) 13.8 10.0-50.0 % Monocytes (%) (Auto) 6.6 0.0-12.0 % Eosinophils (%) (Auto) 1.1 0.0-7.0 % Basophils (%) (Auto) 0.3 0.0-2.0 % Neutrophils # (Auto) 6.3 1.6-8.6 10 ^3/uL Lymphocytes # (Auto) 1.1 0.4-5.4 10 ^3/uL Monocytes # (Auto) 0.5 0-1.3 10 ^3/uL Eosinophils # (Auto) 0.1 0-0.8 10 ^3/uL Basophils # (Auto) 0 0-0.2 10 ^3/uL Nucleated Red Blood Cells 0.0 % Sodium Level 141 136-145 mmol/L Potassium Level 3.5 3.5-5.1 mmol/L Chloride Level 102 98-107 mmol/L Carbon Dioxide Level 30 20-31 mmol/L Anion Gap 9 5-15 Blood Urea Nitrogen 17 9-23 mg/dL Creatinine 1.03 H 0.550-1.02 mg/dL Glomerular Filtration Rate Calc 58 >90 mL/min BUN/Creatinine Ratio 16.5 10.0-20.0 Serum Glucose 132 H 74-106 mg/dL Calcium Level 9.0 8.7-10.4 mg/dL B-Type Natriuretic Peptide 29.68 0-100 pg/mL Assessment/Plan Problem List: (1) Chest pain (2) Elevated troponin (3) Abdominal pain Plan This is a 69 yo female with a known history of CAD, CO with stent placement, HTN, HLD, Obesity who presents to the hospital with epigastric pain radiating to chest, back, n/v. Patient has a heart score of 6. Patient found to have 1. Chest pain r/o ACS 2. NSTEMI 3. Hypertension 4. DMT2 5. Hyperlipidemia Plan: Admit Telemetry Cardiology consultation, 2D echo, serial troponin levels, ASA, Statin Lovenox 1mg /kg SC Lipid panel Continue home medications as needed when reconciled Follow CT abdomen/pelvis wo contrast results GI ppx Protonix IV Analgesic as needed Discussed all above with patient who verbalized agreement and understanding of care plan. All questions were answered. Discussed with supervising MD. Plan discussed with: Patient, Other Code Visit Code Visit Total Time (mins): 45 Additional Comments Additional Comments Additional Comments Patient's chart is reviewed and discussed with the nurse practitioner. Patient seen evaluated and admitted by nurse practitioner filer finish. I agree with her evaluation, documentation, assessment and care plan as outlined. ARABELLA DEL CID Feb 05, 2025 06:03 CIRO ABARCA MD Feb 05, 2025 12:33
--- NOTE | 2025-02-05 06:36 | DVH ---
Exam: CT CT AB PEL WO CON-NO ORAL OR IV History: abdominal pain, N/V Comparison Study: None Technique: Multidetector spiral CT of the abdomen and pelvis was performed from lung bases to pubic s ymphysis. Imaging was performed without intravenous contrast. Coronal and sagittal multiplanar reform ats were obtained from the axial data set by the technologist. Radiation Dose : 1. Abdomen/Pelvis: CTDIvol 15.09 mGy, DLP 787.85 mGy*cm. Findings: Evaluation of vasculature and solid organs is limited due to lack of intravenous contrast use. Lung Bases: Lung bases are clear. Visualized portions of the heart and pericardium are unremarkable. Liver: The liver is normal in size. No focal lesions. Gallbladder and Biliary Tree: Faint hyperdensity in the gallbladder lumen suspicious for gallstone. N o surrounding inflammatory changes. No intrahepatic or extrahepatic biliary ductal dilatation. Spleen: Unremarkable. Pancreas: The pancreas is grossly unremarkable. Adrenal Glands: Unremarkable. Kidneys: 2.3 cm left renal cyst. Calcified right renal cyst measuring 1.4 cm. No intrarenal calculi. No hydronephrosis. GI tract: Small hiatal hernia. No evidence of small bowel wall thickening or abnormal dilatation to s uggest bowel obstruction. There is stool throughout the colon. The appendix is not visualized, howeve r no inflammatory changes in the right lower quadrant to suggest acute appendicitis. Peritoneum/mesentery/retroperitoneum. No evidence of free intraperitoneal air. No ascites. No evidenc e of suspicious lymphadenopathy. Abdominal Wall: Unremarkable. Vasculature: The visualized abdominal aorta is normal in size and caliber. Evaluation of abdominal a nd pelvic vessels is limited due to lack of intravenous contrast. Urinary Bladder: Grossly unremarkable for degree of distention. Pelvic Organs: Unremarkable Musculoskeletal: No aggressive focal bony lesions, acute fractures or dislocation. Multilevel lumbar spondylosis. IMPRESSION: 1. No acute abdominal or pelvic findings. 2. Possible gallstones. Right upper quadrant ultrasound may be obtained for further evaluation. No s urrounding inflammatory changes.
[2025-02-05 07:14] LABS: INR 0.97 (0.9-1.15); Prothrombin Time 10.3 sec (9.3-11.8)
[2025-02-05] MEDS: PANTOPRAZOLE 40 MG/10 ML VIAL INJ IV ONE (07:17)
[2025-02-05] MEDS: ONDANSETRON HCL 4 MG/2 ML VIAL IV PRN (07:18)
[2025-02-05] MEDS: ACETAMINOPHEN 325 MG TAB PO PRN (07:18)
[2025-02-05] MEDS: ENOXAPARIN SOD 100 MG/1 ML SYRINGE SC SCH (07:19)
--- NOTE | 2025-02-05 09:21 | DVHINCON2 ---
Date Seen: Feb 05, 2025 Referring Physician HUGO Mane Reason for Consultation Chest pain History of Present Illness This is a 69-year-old female who presented to the emergency room with a chief complaint of epigastric pain since yesterday. The patient reports she went to the movies and had some popcorn and afterwards had some dinner developing persistent epigastric pain radiating to her mid back and substernal chest area for which she took an antigas with no relief of symptoms. Soon after she self- administered Pepto-Bismol but given persistent and constant pain she then medicated herself with Pepcid. She decided to seek further medical attention as the symptoms did not dissipate completely. She has a history of a myocardial infarction undergoing emergent PTCA to a 100% occluded RCA x 1 MARIALUISA on 02/02/2020. At that time she was also found with a proximal LAD 70-80% stenosis and mid LAD diffuse disease at 50-60% along with an OM1 focal 70% stenosis in the midportion prior to distal bifurcation of the LCx. She was then recommended for PCI vs CABG in the future but the patient denies any following cardiac procedures neither cardiothoracic evaluation. 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 A 12 lead electrocardiogram revealed a sinus rhythm with nonspecific T-wave changes inferior leads. Serial troponins are trending up with latest at 84 ng/L. Other significant medical history includes dyslipidemia, hypertension, fcm-ctozcqz-qfivnenbi diabetes mellitus, and obesity. Past Medical History Past medical history reviewed. No other significant than mentioned above. Past Surgical History PTCA to the RCA x1 MARIALUISA, 01/2020 Family History: FH: cancer Hypertension G8 MOTHER Family History Family history reviewed. Social History Denies the use of illicit drugs or tobacco use. Admits to occasional alcohol use. Allergies: Coded Allergies: No Known Drug Allergy (Verified Allergy, Unknown, 02/02/20) Home Meds Active Scripts Carvedilol (COREG) 3.125 Mg Tab, 3.125 MG PO Q12HR for 30 Days, #60 TAB Prov:COREEN VALENZUELA MD 02/03/20 Atorvastatin Calcium (ATORVASTATIN CALCIUM) 40 Mg Tab, 1 TAB PO DAILY, #30 TAB 0 Refills Prov:COREEN VALENZUELA MD 02/03/20 Ticagrelor Base (BRILINTA) 90 Mg Tab, 90 MG PO BID for 30 Days, #60 TAB Prov:COREEN VALENZUELA MD 02/03/20 Aspirin (Asa) 81 Mg Ch, 81 MG PO DAILY for 100 Days, #100 TAB Prov:COREEN VALENZUELA MD 02/03/20 Reported Medications Atorvastatin Calcium (Lipitor) 10 Mg Tab, 1 TAB PO QPM, #90 TAB 3 Refills 02/02/20 Lisinopril & Hydrochlorothiazi (Zestoretic 20-12.5 mg) 1 Tab Tab, 2 TAB PO DAILY, TAB 02/02/20 Home Meds Home medications reviewed. Current Medications Current Medications Medications (Trade) Dose Ordered Sig/Ann Marie Route PRN Reason Start Time Stop Time Status Last Admin Nitroglycerin (Ntrostat Sublingual) 0.4 mg Q5MINP PRN SL FOR CHEST PAIN 02/05/25 05:45 Morphine Sulfate 2 mg Q30M PRN IV FOR CHEST PAIN 02/05/25 05:45 Ondansetron HCl (Zofran) 4 mg Q6HPRN PRN IV NAUSEA / VOMITING 02/05/25 05:45 02/05/25 07:18 Atorvastatin Calcium (Lipitor) 40 mg HS PO 02/05/25 22:00 Aspirin 81 mg DAILY PO 02/05/25 05:45 02/05/25 07:17 Acetaminophen/ Hydrocodone Bitart (Lavina 5/325MG Tab) 1 tab Q6HPRN PRN PO PAIN SCALE 1 THRU 6 02/05/25 05:45 02/05/25 05:57 DC Acetaminophen (Tylenol Tablet) 650 mg Q6HPRN PRN PO PAIN SCALE 1-3 OR TEMP>100.4 02/05/25 05:45 02/05/25 07:18 Pantoprazole Sodium (Protonix) 40 mg DAILY IV 02/06/25 10:00 Enoxaparin Sodium (Lovenox) 110 mg Q12HR SC 02/05/25 05:45 02/05/25 07:19 Acetaminophen/ Hydrocodone Bitart (Lavina 5/325MG Tab) 1 tab Q6HPRN PRN PO PAIN SCALE 4 THRU 6 02/05/25 06:00 Review of Systems Constitutional: No symptom reported Ears, Nose, & Throat: No symptom reported Eyes: No symptom reported Neurological: No symptoms reported Pulmonary/Respiratory: No symptom reported Cardiovascular: Chest pain, retrosternal pain Gastrointestinal: Epigastric pain Genitourinary: No symptom reported Musculoskeletal: No symptom reported Skin: No symptom reported Psychiatric: No symptom reported Endocrine: No symptom reported Hemotologic/Lymphatic: No symptom reported Vital Signs Vital Signs Date Time Temp Pulse Resp B/P (MAP) Pulse Ox O2 Delivery O2 Flow Rate FiO2 02/05/25 07:21 73 19 97 Room Air* 0 21 02/05/25 07:20 98.0 177/73 (107) 98.0 Physical Exam General Appearance: Cooperative. Well developed. Obese. In no acute distress Head Exam: Normal inspection Neck Exam: Normal inspection. Non-tender. Normal alignment Pulmonary/Respiratory: Chest non-tender. Clear bilateral breath sounds Cardiovascular/Chest: Regular rate and rhythm. S1, S2. No murmurs. No JVD. Peripheral Pulses: 2+ Radial (R). 2+ Radial (L). 2+ Pedal (R). 2+ Pedal (L) Abdominal Exam: Normal bowel sounds. Soft. Nontender. No hepatospenomegaly. No masses Ankle Exam: Negative ankle edema Lower extremities: Negative lower extremity edema Neuro/Mental Status: A&O x4. Coherent Thoughts/Psych: Normal thought pattern. Appropriate mood and affect. Good judgement and insight Appearance: In no acute distress Skin Exam: Normal inspection. Normal color. Warm. Dry Labs/Diagnostic Data Labs Test 02/05/25 06:30 02/05/25 05:33 02/05/25 01:03 Range/Units Troponin I High Sensitivity 84 *H </=34 ng/L Prothrombin Time 10.3 9.3-11.8 sec Prothrombin Time INR 0.97 0.9-1.15 White Blood Count 8.0 4.4-10.8 10^3/uL Red Blood Count 5.09 4.0-5.20 10^6/uL Hemoglobin 14.4 12.2-16.2 g/dL Hematocrit 42.8 36.0-46.0 % Mean Corpuscular Volume 84.1 80.0-100.0 fL Mean Corpuscular Hemoglobin 28.3 28.0-32.0 pg Mean Corpuscular Hemoglobin Concent 33.7 32.0-36.0 g/dL Red Cell Distribution Width 14.6 H 11.8-14.3 % Platelet Count 205 140-450 10^3/uL Mean Platelet Volume 8.4 6.9-10.8 fL Neutrophils (%) (Auto) 78.2 37.0-80.0 % Lymphocytes (%) (Auto) 13.8 10.0-50.0 % Monocytes (%) (Auto) 6.6 0.0-12.0 % Eosinophils (%) (Auto) 1.1 0.0-7.0 % Basophils (%) (Auto) 0.3 0.0-2.0 % Neutrophils # (Auto) 6.3 1.6-8.6 10 ^3/uL Lymphocytes # (Auto) 1.1 0.4-5.4 10 ^3/uL Monocytes # (Auto) 0.5 0-1.3 10 ^3/uL Eosinophils # (Auto) 0.1 0-0.8 10 ^3/uL Basophils # (Auto) 0 0-0.2 10 ^3/uL Nucleated Red Blood Cells 0.0 % Sodium Level 141 136-145 mmol/L Potassium Level 3.5 3.5-5.1 mmol/L Chloride Level 102 98-107 mmol/L Carbon Dioxide Level 30 20-31 mmol/L Anion Gap 9 5-15 Blood Urea Nitrogen 17 9-23 mg/dL Creatinine 1.03 H 0.550-1.02 mg/dL Glomerular Filtration Rate Calc 58 >90 mL/min BUN/Creatinine Ratio 16.5 10.0-20.0 Serum Glucose 132 H 74-106 mg/dL Calcium Level 9.0 8.7-10.4 mg/dL B-Type Natriuretic Peptide 29.68 0-100 pg/mL Assessment Acute coronary syndrome Non ST-elevation myocardial infarction Highly suspected progressive coronary artery disease Coronary artery disease status post PTCA to the RCA x1 MARIALUISA (2019, on ASA and statin) Hypertension Dyslipidemia Fbv-kmsftic-vfsznndyi diabetes mellitus Obesity Plan/Recommendation (Dr. Pedersen) The patient with an acute coronary syndrome is highly suspected for progressive coronary artery disease given history of PTCA to the RCA x1 MARIALUISA and significant LAD and left circumflex stenosis which has not been addressed. She has been scheduled for an urgent cardiac catheterization and coronary angiogram with Dr. Pedersen at first available. All risks and benefits of the procedure were discussed with the patient who agrees to proceed with intervention. All questions answered. Risks include bleeding, JUSTINE, CVA, coronary artery dissection, and even . In the meantime, obtain a transthoracic echocardiogram to evaluate cardiac function. Continue single antiplatelet therapy and lipid lowering agent. Rest of plan and management per clinical course. Thank you for allowing us to participate in this patient's care. Please call if you have any questions or concerns. Critical care time: 45 min. This medical document was created using an electronic medical record system with voice recognition software and computerized dictation system. Although this document has been carefully reviewed, there might still be some phonetic and typographical errors. Occasional wrong-word or ``sound-alike substitutions may have occurred due to the inherent limitations of voice recognition software. These areas are purely typographical due to imperfections of the software programs and do not reflect any compromise in the patient's medical care. Please read the chart carefully and recognize, using context, where these substitutions have occurred. Plan discussed with: Patient, Other NYHA Physical activity limitations: NA Date of Service: Feb 05, 2025 Billing Provider: JABIER BELL Cardiology Common Codes: 92636-GHOFZMNH CARE 30-74 MIN JABIER BELL Feb 05, 2025 09:21
[2025-02-05 10:46] LABS: Magnesium 1.9 mg/dL (1.6-2.6); Triglycerides 115.0 mg/dL (< 150)
[2025-02-05 10:47] LABS: Cholesterol 174.0 mg/dL (< 200); HDL Cholesterol 58.0 mg/dL (40-59)
[2025-02-05] MEDS: LIDOCAINE 2%HCL (LOCAL ANESTH.) INJ 20ML MDV ONE (12:25)
[2025-02-05] MEDS: IODIXANOL 320MG/ML 100ML BTL IV ONE ×3 (12:26→13:15)
[2025-02-05] MEDS: HEPARIN SODIUM (PORCINE) 5000 UNITS/ML 1ML VIAL ONE (12:38)
[2025-02-05] MEDS: ANGIOMAX 250 MG VIAL IV ONE ×2 (12:38→12:39)
[2025-02-05] MEDS: VERAPAMIL 2.5MG/ML INJ 2ML VIAL IV ONE (12:38)
[2025-02-05] MEDS: fentaNYL CITRATE 100 MCG/2 ML VL ONE (12:38)
[2025-02-05] MEDS: SODIUM CHL 0.9% 0 ML ONE (12:39)
[2025-02-05] MEDS: MIDAZOLAM HCL 2MG/2ML 2ml VIAL (1mg/ml) ONE (12:39)
[2025-02-05] MEDS: TICAGRELOR 90 MG TAB ONE (13:58)
--- NOTE | 2025-02-05 15:39 | DVHOP2 ---
Operative Report - 2 Report Details Date: 02/05/25 Preop Diagnosis: Coronary artery disease Postop Diagnosis: Stenosis of LAD Surgeon: Teresita Pedersen MD Anesthesiologist: Conscious sedation Anesthesia: Mac, Local Consent: The patient was informed of the risks and benefits of the procedure. These include but are not limited to complications of anesthesia, postoperative infection, incomplete relief of symptoms, recurrence of symptoms, damage to blood vessels, nerves and tendons, deep venous thrombosis, pulmonary embolism and possible need for repeat surgery in the future. Complications: No complications Findings: Stenosis of the LAD. Mildly decreased LV function. Indications for Surgery: Chest pain Name of Procedure Performed Left heart catheterization. Bilateral cine coronary angiography. Left ventriculography. Fractional flow reserve evaluation of the left anterior descending coronary artery Procedure Details Procedure Details: Prior local anesthesia with 2% lidocaine to the right wrist and full informed consent obtained patient was prepped and draped in usual fashion followed by myron cement of a six Nepalese sheath into the radial artery followed by placement of a multipurpose catheter and then with a 3.0 EBU guide to perform angioplasty. patient tolerated procedure well there were no complications. Fractional flow reserve evaluation was also used with a catheterization works program. Hemodynamics : Aortic blood pressure was 110/70 with an end-diastolic pressure of 18. There was no gradient across the aortic valve on pullback. Coronary anatomy: RCA is a large vessel with mild plaquing in its proximal mid and distal segments. PDA and posterolateral branches are otherwise free of significant disease. Left main is large and normal. Left anterior descending coronary artery is a large vessel with a proximal in stent restenosis of about 80%. Part of the stenosis with proximal to the originally placed stent but involving the proximal and mid section of the previous stent as well. The mid LAD has about a 75-80% stenosis. FFR at this level revealed a 0.72 Consistent with severe stenosis. The initial FFR proximally was at 0.55 Also consistent with a severe stenosis. The circumflex is large with two marginals free of significant disease. Ventriculography in the HENDERSON projection shows an EF of about 55%. Angioplasty was performed for which a 3.0 EBU guide was then placed followed by placement of a Specter wire and pre dilatation with a 2.5 mm x 15 mm balloon to the proximal LAD. Noted recoil for which we placed a 3-0 by 18 mm stent proximally at a proximally 12 atmospheres. There was a distal edge stenosis which also was noted to have a significant FFR abnormality. This was stented with a 2.75 by 22 mm stent. The mid LAD was stented with a 2.75 mm x 15 mm stent. there was excellent antegrade flow without thrombus formation under dissection. Impression : successful PTCA and stenting subsequent to FFR of the proximal and mid LAD. Normal ventricular function. Elevated left ventricular end-diastolic pressure at rest. Recommendations: Dual antiplatelet therapy. Risk factor modification to continue. Condition Good Disposition Still a Patient Date of Service: Feb 05, 2025 Billing Provider: TERESITA PEDERSEN Sr., MD Cardiology Common Codes: 44747-[id number] INP/OBS CARE (High) Cardiology Procedure Codes: 40576-[id number] VESSEL W/I VASC FAM ( fractional flow reserve evaluation of the LAD), 95288 -PTCA W/STENT PLACEMENT TERESITA PEDERSEN Sr., MD Feb 05, 2025 15:39
[2025-02-05] MEDS ORDERED: ATOR40TA52 PO (16:24)
[2025-02-05] MEDS ORDERED: TICA90TA PO (16:24)
[2025-02-05] MEDS ORDERED: CARV-214 PO (16:24)
[2025-02-05] MEDS ORDERED: ASPI81TA28 PO (16:25)
[2025-02-05] MEDS ORDERED: hydrALAZINE HCL 20 MG/ML VL IV PRN (17:15)
[2025-02-05] MEDS: TICAGRELOR 90 MG TAB PO SCH (22:59)
[2025-02-05] MEDS: ATORVASTATIN 20 MG TAB PO SCH (22:59)
[2025-02-06 00:11] LABS: Urine Protein, UAD 1+ (Negative)
[2025-02-06 01:00] VITALS: BP 108/55; PULSE 89; RESP 17; TEMP 98.5; O2SAT 95
[2025-02-06 05:00] VITALS: BP 102/68; PULSE 86; RESP 17; TEMP 98.7; O2SAT 92
[2025-02-06] MEDS: diphenhdrAMINE HCL 25 MG CAP PO ONE (05:30)
[2025-02-06 06:34] LABS: Chloride 102 mmol/L (98-107); Potassium 3.6 mmol/L (3.5-5.1); Sodium 140 mmol/L (136-145)
[2025-02-06 06:35] LABS: Anion Gap 9 (5-15); Calcium 10.0 mg/dL (8.7-10.4); Carbon Dioxide 29 mmol/L (20-31)
[2025-02-06 06:40] LABS: BUN/Creatinine Ratio 11.5 (10.0-20.0); Blood Urea Nitrogen 10 mg/dL (9-23)
[2025-02-06 06:44] LABS: Glucose 124 mg/dL (74-106)
[2025-02-06] MEDS ORDERED: FEXO1TAB41 PO (06:46)
[2025-02-06] MEDS: PANTOPRAZOLE 40 MG/10 ML VIAL INJ IV SCH (08:43)
[2025-02-06] MEDS: METOPROLOL SUCCINATE XL 50 MG TAB PO SCH (08:44)
[2025-02-06 08:47] VITALS: BP 130/74; PULSE 82; RESP 16; TEMP 98.5; O2SAT 95
--- NOTE | 2025-02-06 12:11 | DVHPN2 ---
Consult Progress Note Subjective Other Systems: Patient in normal sinus rhythm at time of assessment. Denies any cardiac symptoms. Objective vital signs Vital Sign Date Time Temp Pulse Resp B/P (MAP) Pulse Ox O2 Delivery O2 Flow Rate FiO2 02/06/25 08:47 98.5 82 16 130/74 (92) 95 98.5 02/06/25 07:46 Room Air* 0 21 Total Intake and Output 02/05/25 02/05/25 02/06/25 15:00 23:00 07:00 Intake Total 300 ml Balance 300 ml medications Current Medications Medications Dose Ordered Sig/Ann Marie Route Start Time Stop Time Status Last Admin Dose Admin Nitroglycerin 0.4 mg Q5MINP PRN SL 02/05/25 05:45 Morphine Sulfate 2 mg Q30M PRN IV 02/05/25 05:45 Ondansetron HCl 4 mg Q6HPRN PRN IV 02/05/25 05:45 02/05/25 07:18 4 MG Atorvastatin Calcium 40 mg HS PO 02/05/25 22:00 02/05/25 22:59 40 MG Aspirin 81 mg DAILY PO 02/05/25 05:45 02/06/25 08:43 81 MG Acetaminophen 650 mg Q6HPRN PRN PO 02/05/25 05:45 02/05/25 07:18 650 MG Pantoprazole Sodium 40 mg DAILY IV 02/06/25 10:00 02/06/25 08:43 40 MG Acetaminophen/ Hydrocodone Bitart 1 tab Q6HPRN PRN PO 02/05/25 06:00 Ticagrelor 90 mg BID PO 02/05/25 22:00 02/06/25 08:43 90 MG Metoprolol Succinate 25 mg DAILY PO 02/06/25 10:00 02/06/25 08:44 25 MG Hydralazine HCl 10 mg Q6HP PRN IV 02/05/25 17:15 Examination: GENERAL:Normal, LUNGS:Normal, CVS:Normal, NEURO:Normal laboratory and microbiology Laboratory Tests 02/06/25 05:57 02/05/25 01:03 Test 02/06/25 05:57 Range/Units Serum Glucose 124 H 74-106 mg/dL Problem List/Assessment/Plan Problem List/Assessment/Plan Acute coronary syndrome s/p PTCA x [address]IALU[address]-elevation myocardial infarction Hx of Coronary artery disease status post PTCA to the RCA x1 MARIALUISA (2019, on ASA and statin) Hypertension Dyslipidemia Hks-eahorpu-xhkhombyg diabetes mellitus Obesity Plan/Recommendation (Dr. Pedersen) Case discussed with . The patient underwent a coronary angiogram with left heart catheterization in which 3 drug-eluting stents were placed to the LAD. During the procedure, ventriculography reveals an EF of about 55%. We will recommend for the patient to continue with dual antiplatelet therapy with Brilinta and aspirin. Continue with beta-esther, ALISA inhibitor, and statin therapy. The patient has been scheduled to follow up with Dr. [facility] 02/18/2025 at 1:30 p.m. There is no further inpatient cardiac workup indicated at this time. Thank you for allowing us to care for this patient. Please call with any questions or concerns. This medical document was created using an electronic medical record system with voice recognition software and computerized dictation system. Although this document has been carefully reviewed, there might still be some phonetic and typographical errors. Occasional wrong-word or ``sound-alike substitutions may have occurred due to the inherent limitations of voice recognition software. These areas are purely typographical due to imperfections of the software programs and do not reflect any compromise in the patient's medical care. Please read the chart carefully and recognize, using context, where these substitutions have occurred. Plan discussed with: Patient Date of Service: Feb 06, 2025 Billing Provider: ARGENTINA WADDELL Common Visit Codes: 95126-[id number] INP/OBS CARE(HIGH) ARGENTINA WADDELL Feb 06, 2025 12:11
[2025-02-06 13:00] VITALS: BP 115/62; PULSE 87; RESP 16; TEMP 98.3; O2SAT 96
--- NOTE | 2025-02-06 13:02 | DVHDS2 ---
Discharge Summary Date of Admission Feb 05, 2025 at 05:33 Date of Discharge: Feb 06, 2025 Admitting Diagnosis Chest pain Labs/Diagnostic Data: Laboratory Results Test 02/06/25 05:57 02/05/25 23:04 02/05/25 09:43 02/05/25 09:22 Sodium Level 140 mmol/L (136-145) Potassium Level 3.6 mmol/L (3.5-5.1) Chloride Level 102 mmol/L (98-107) Carbon Dioxide Level 29 mmol/L (20-31) Anion Gap 9 (5-15) Blood Urea Nitrogen 10 mg/dL (9-23) Creatinine 0.87 mg/dL (0.550-1.02) Glomerular Filtration Rate Calc 71 mL/min (>90) BUN/Creatinine Ratio 11.5 (10.0-20.0) Serum Glucose 124 mg/dL (74-106) Calcium Level 10.0 mg/dL (8.7-10.4) Urine Color Yellow (Yellow) Urine Clarity Clear (Clear) Urine pH 5.5 (5.0-9.0) Urine Specific [place] > 1.050 (1.001-1.035) Urine Protein 1+ (Negative) Urine Ketones Negative (Negative) Urine Blood Negative /uL (Negative) Urine Nitrite Negative (Negative) Urine Bilirubin Negative (Negative) Urine Urobilinogen Normal mg/dL (Negative) Urine Leukocyte Esterase 2+ /uL (Negative) Urine RBC 10 /hpf (0 - 4) Urine Microscopic WBC 22 /HPF (0-5) Urine Squamous Epithelial Cells Mod /hpf (<5) Urine Bacteria None seen /hpf (None Seen) Urine Mucus Few (None Seen) Urine Glucose Normal mg/dL (Normal) Hemoglobin A1c 6.0 % A1C (<5.7) Magnesium Level 1.9 mg/dL (1.6-2.6) Troponin I High Sensitivity 27 ng/L (</=34) B-Type Natriuretic Peptide 40.42 pg/mL (0-100) Triglycerides Level 115 mg/dL (< 150) Cholesterol Level 174 mg/dL (< 200) LDL Cholesterol 103 mg/dL (< 100) HDL Cholesterol 58 mg/dL (40-59) Thyroid Stimulating Hormone (TSH) 1.85 uIU/mL (0.55-4.78) Test 02/05/25 05:33 02/05/25 01:03 Prothrombin Time 10.3 sec (9.3-11.8) Prothrombin Time INR 0.97 (0.9-1.15) White Blood Count 8.0 10^3/uL (4.4-10.8) Red Blood Count 5.09 10^6/uL (4.0-5.20) Hemoglobin 14.4 g/dL (12.2-16.2) Hematocrit 42.8 % (36.0-46.0) Mean Corpuscular Volume 84.1 fL (80.0-100.0) Mean Corpuscular Hemoglobin 28.3 pg (28.0-32.0) Mean Corpuscular Hemoglobin Concent 33.7 g/dL (32.0-36.0) Red Cell Distribution Width 14.6 % (11.8-14.3) Platelet Count 205 10^3/uL (140-450) Mean Platelet Volume 8.4 fL (6.9-10.8) Neutrophils (%) (Auto) 78.2 % (37.0-80.0) Lymphocytes (%) (Auto) 13.8 % (10.0-50.0) Monocytes (%) (Auto) 6.6 % (0.0-12.0) Eosinophils (%) (Auto) 1.1 % (0.0-7.0) Basophils (%) (Auto) 0.3 % (0.0-2.0) Neutrophils # (Auto) 6.3 10 ^3/uL (1.6-8.6) Lymphocytes # (Auto) 1.1 10 ^3/uL (0.4-5.4) Monocytes # (Auto) 0.5 10 ^3/uL (0-1.3) Eosinophils # (Auto) 0.1 10 ^3/uL (0-0.8) Basophils # (Auto) 0 10 ^3/uL (0-0.2) Nucleated Red Blood Cells 0.0 % Other Laboratory Tests 02/06/25 05:57 02/05/25 01:03 Brief Hx & Hospital Course: Mrs. Carmina Temple is a 69 yo female with known history of CAD, NSTEMI, stent placement x1 by Dr. Andrea cerrato 3 years ago, HTN, HLD, DM, Obesity who presents with a chief complaint of mid abdominal pain burning sensation radiating to mid epigastric, chest and back onset last night which prompted her to come to the hospital. Patient reports associated nausea , vomiting. Denies dyspnea, headaches, blurry vision, fevers , chills, diarrhea, vomiting, melena, hematochezia, hematemesis. Patient with troponin levels of 26, 36 , 60. Patient admitted for further evaluation and treatment. She is admitted and noted to have non ST elevation NC. Therefore evaluated by cover creaser underwent a coronary angiogram. Patient had LAD stent placement. Postop patient is doing well. She is counseled and educated regarding compliance with the dual antiplatelet therapy as well as cardiac medications and statins. Patient advised diet exercise and weight loss and good aggressive risk factor modification with medications and activity/low-cholesterol low-fat diet. Otherwise overall given she is clinically stable while in the hospital feeling better back to baseline status it is felt she could be safely discharged home with a close outpatient follow up. I have talked with the patient regarding her hospital diagnosis, treatment she received, angiogram results, discharge medications, discharge instructions and follow-up plan of care. She has verbalized understanding of these and agree with the care plan as outlined. Operations or Procedures Operative Report - 2 Report Details Date: 02/05/25 Preop Diagnosis: Coronary artery disease Postop Diagnosis: Stenosis of LAD Surgeon: Teresita Juan MD Anesthesiologist: Conscious sedation Anesthesia: Mac, Local Consent: The patient was informed of the risks and benefits of the procedure. These include but are not limited to complications of anesthesia, postoperative infection, incomplete relief of symptoms, recurrence of symptoms, damage to blood vessels, nerves and tendons, deep venous thrombosis, pulmonary embolism and possible need for repeat surgery in the future. Complications: No complications Findings: Stenosis of the LAD. Mildly decreased LV function. Indications for Surgery: Chest pain Name of Procedure Performed Left heart catheterization. Bilateral cine coronary angiography. Left ventriculography. Fractional flow reserve evaluation of the left anterior descending coronary artery Procedure Details Procedure Details: Prior local anesthesia with 2% lidocaine to the right wrist and full informed consent obtained patient was prepped and draped in usual fashion followed by placement of a six [place] sheath into the radial artery followed by placement of a multipurpose catheter and then with a 3.0 EBU guide to perform angioplasty. patient tolerated procedure well there were no complications. Fractional flow reserve evaluation was also used with a catheterization works program. Hemodynamics : Aortic blood pressure was 110/70 with an end-diastolic pressure of 18. There was no gradient across the aortic valve on pullback. Coronary anatomy: RCA is a large vessel with mild plaquing in its proximal mid and distal segments. PDA and posterolateral branches are otherwise free of significant disease. Left main is large and normal. Left anterior descending coronary artery is a large vessel with a proximal in stent restenosis of about 80%. Part of the stenosis with proximal to the originally placed stent but involving the proximal and mid section of the previous stent as well. The mid LAD has about a 75-80% stenosis. FFR at this level revealed a 0.72 Consistent with severe stenosis. The initial FFR proximally was at 0.55 Also consistent with a severe stenosis. The circumflex is large with two marginals free of significant disease. Ventriculography in the HENDERSON projection shows an EF of about 55%. Angioplasty was performed for which a 3.0 EBU guide was then placed followed by placement of a Specter wire and pre dilatation with a 2.5 mm x 15 mm balloon to the proximal LAD. Noted recoil for which we placed a 3-0 by 18 mm stent proximally at a proximally 12 atmospheres. There was a distal edge stenosis which also was noted to have a significant FFR abnormality. This was stented with a 2.75 by 22 mm stent. The mid LAD was stented with a 2.75 mm x 15 mm stent. there was excellent antegrade flow without thrombus formation under dissection. Impression : successful PTCA and stenting subsequent to FFR of the proximal and mid LAD. Normal ventricular function. Elevated left ventricular end-diastolic pressure at rest. Recommendations: Dual antiplatelet therapy. Risk factor modification to continue. Condition Good Date of Service: Feb 05, 2025 Billing Provider: TERESIAT JUAN Sr., MD Cardiology Common Codes: 96019-HLTXIMT INP/OBS CARE (High) Cardiology Procedure Codes: 21645-HICCHB VESSEL W/I VASC FAM ( fractional flow reserve evaluation of the LAD), 79857 -PTCA W/STENT PLACEMENT TERESITA JUAN Sr., MD Feb 05, 2025 15:39 Condition at Discharge: Stable Final Diagnosis/Problems List Stenosis of LAD s/p PTCA with Stent placement Discharge Disposition: Home Discharge Instruct/Medications Diet: Consistent carbohydrate, Cardiac 2g Na,low cholest Activity: No Restrictions, As Tolerated Follow Up/Referral: cardiology 2 weeks Medications: asa, brillinta, other home meds New Medications: Aspirin (Aspirin Ec) 81 Mg Tab 81 MG PO DAILY, #120 TAB Changed Medications: Carvedilol (Coreg) 3.125 Mg Tab 3.125 MG PO BID for 30 Days, #60 TAB (Changed from: Q12HR) Continued Medications: Atorvastatin Calcium (Atorvastatin Calcium) 40 Mg Tab 1 TAB PO DAILY, #30 TAB 1 Refill (This prescription has been renewed) Lisinopril & Hydrochlorothiazi (Zestoretic 20-12.5 mg) 1 Tab Tab 2 TAB PO DAILY, TAB Ticagrelor Base (Brilinta) 90 Mg Tab 90 MG PO BID for 30 Days, #60 TAB 1 Refill (This prescription has been renewed) Discontinued Medications: Aspirin (Asa) 81 Mg Ch 81 MG PO DAILY for 100 Days, #100 TAB Atorvastatin Calcium (Lipitor) 10 Mg Tab 1 TAB PO QPM, #90 TAB 3 Refills Scheduled Aspirin (Aspirin Ec), 81 MG PO DAILY Atorvastatin Calcium (Atorvastatin Calcium), 1 TAB PO DAILY Carvedilol (Coreg), 3.125 MG PO BID Fexofenadine Hydrochloride (Allergy 24-Hr), 180 MG PO DAILY, (Reported) Lisinopril & Hydrochlorothiazi (Zestoretic 20-12.5 mg), 2 TAB PO DAILY, (Reported) Ticagrelor Base (Brilinta), 90 MG PO BID Discontinued Medications Aspirin (Asa), 81 MG PO DAILY Atorvastatin Calcium (Lipitor), 1 TAB PO QPM, (Reported) Ticagrelor Base (Brilinta), 90 MG PO BID Discontinued Reason: Prescription changed Discharge Statement: "Patient was advised to return to the ER or call 911 if any headaches, dizziness, shortness of breath, chest pain, abdominal pain, bleeding, fevers, or worsening of medical condition. Patient was counseled about treatment plan, medications, possible side effects, patientverbalized understanding. All questions were answered to the best of my ability. This discharge took greater then 30 minutes in planning, reviewing documentation, counseling the patient, and discussing with other team members." ASSESSMENT ASSESSMENT Assessment Stenosis of LAD s/p PTCA with Stent placement CIRO ABARCA MD Feb 06, 2025 13:02
[2025-02-06] MEDS ORDERED: TICA90TA PO (13:49)
[2025-02-06 14:21] VITALS: TEMP 36.8
--- NOTE | 2025-02-06 16:12 | DVHSR ---
APPROVED REPORT EXAM: Two-dimensional and M-mode echocardiogram with Doppler and color Doppler. Blood Pressure: 177/73 mmHg INDICATION Chest Pain elevated trops RISK FACTORS Height: 66, Weight: 240 DIMENSIONS LVDd5.4 (3.8-5.7cm)LA (2D)4.3 (1.9-4.0cm)Aortic Root2.9 (2.0-3.7cm) LVDs4.0 (2.5-4.0cm)LA (MM) (1.9-4.0cm)Aortic Cusp Exc1.6 (1.5-2.0cm) EF (%) 50.0 (55-70%)Rt. Atrium4.3 (1.9-4.0cm)Asc. Aorta cm IVSd1.1 (0.7-1.1cm)RV (D) (1.8-2.4cm) PWd1.0 (0.7-1.1cm) Mitral Valve MitralMitral Stenosis E wave0.51m/sMV Mean GR.mmHg A wave0.97m/sMV Peak GR.90mmHg E/A ratio0.52D MVAcm2 DECEL [id number] 1/2 [id number] IVRTmsDop MVA3.08cm2 Aortic Valve Aortic ValveAortic Stenosis V10.92m/Juancarlos Mean GR.5mmHg V21.48m/Juancarlos Peak GR.9mmHg LVOT Diameter2.2 (1.8-2.4cm)Doppler AVA2.36cm2 Pulmonic Valve V21.14m/s Other Information Technically limited study due to body habitus. Conclusion Technically good study. Sinus rhythm. Biatrial enlargement. Mild aortic sclerosis. Valves appear to be structurally normal otherwise. EF of 55% with normal RV function. Dopplers unremarkable. Pericardial effusion masses or vegetations discernible.
== END 2025-02-06 15:27 | disposition home or self-care (01) | DRG 321 ==
LOC: ER 00:39 → OVERFLOW 05:33 → TELE-WESTW 16:26
PROVIDERS: ADMIT Nurse Practitioner Family; ATTEND Nurse Practitioner Family
PROC: 027036Z Dilation of Coronary Artery, One Artery with Three Drug-eluting Intraluminal Devices, Percutaneous Approach (ICD-10-PCS; principal; 2025-02-05)
PROC: 4A023N7 Measurement of Cardiac Sampling and Pressure, Left Heart, Percutaneous Approach (ICD-10-PCS; 2025-02-05)
PROC: B211YZZ Fluoroscopy of Multiple Coronary Arteries using Other Contrast (ICD-10-PCS; 2025-02-05)
PROC: B215YZZ Fluoroscopy of Left Heart using Other Contrast (ICD-10-PCS; 2025-02-05)
PROC: 4A033BC Measurement of Arterial Pressure, Coronary, Percutaneous Approach (ICD-10-PCS; 2025-02-05)
DX: I25.10 Atherosclerotic heart disease of native coronary artery without angina pectoris (principal); I21.4 Non-ST elevation (NSTEMI) myocardial infarction; E11.9 Type 2 diabetes mellitus without complications; I10 Essential (primary) hypertension; E66.9 Obesity, unspecified; Z68.38 Body mass index [BMI] 38.0-38.9, adult; E78.5 Hyperlipidemia, unspecified; Z95.5 Presence of coronary angioplasty implant and graft; Z82.49 Family history of ischemic heart disease and other diseases of the circulatory system; Z79.84 Long term (current) use of oral hypoglycemic drugs
CPT/HCPCS: 0523T; 92941; 93458; 96374; 96375; 99285; 36415; 71045; 74176; 80048; 80061; 81001; 83036; 83735; 83880; 84443; 84484; 85025; 85610; 93005; 93306; 99152; G0378; J2250; J2405; J2470; Q9967